=== PATIENT | female | born 1990 | race Caucasian/White ===

== ENCOUNTER 2016-11-03 09:18 | Emergency (ER) | payer OTHER ==
[~2016-11-03] VITALS: Ht 152.4 cm; Wt 59.0 kg
[2016-11-03 09:25] VITALS: BP 134/97; PULSE 88; RESP 16; TEMP 98; O2SAT 99
[2016-11-03] MEDS ORDERED: ASPI81CH CHEW (09:42)
[2016-11-03] MEDS ORDERED: VITACAP7 PO (09:42)
[2016-11-03] MEDS ORDERED: SODIUM CHLORIDE 0.9% FLUSH 5 ML FLUSH IVF PRN (09:45)
--- NOTE | 2016-11-03 09:48 | PD ---
HPI Chief Complaint: Chest Pain Time Seen by Provider: 09:31 Travel History International Travel<30 days: No Contact w/Intl Traveler<30days: No Traveled to known affect area: No History of Present Illness HPI The patient was seen and examined in the presence of the nurse. This patient complains of chest pain. Duration 3 days. It is intermittent. Location is center sternum. She describes it as a heaviness. It resolves spontaneously with no alleviating factors. It is not exertional. No cough or hemoptysis. 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 She has never had a blood clot. She takes only a baby aspirin daily. Severity is mild at this time. Was moderate when the chest pain was occurring. PFSH Past Medical History Hx Anticoagulant Therapy: Yes (BABY ASPIRIN ) Medical other: Yes (BLOOD DISORDER) ?: Not LMP: 10/20/16 Social History Alcohol Use: Yes (SOCIALLY) Tobacco Use: No Substance Use: No Allergies-Medications (Allergen,Severity, Reaction): Coded Allergies: Ceclor (Verified Allergy, Unknown, 11/03/16) Reported Meds & Prescriptions Reported Meds & Active Scripts Active Reported B Complex (B-Complex Vitamins) 1 Cap 1 Cap PO DAILY Aspirin 81 Mg Chew 81 Mg CHEW DAILY Review of Systems General / Constitutional: No: Fever Eyes: No: Visual changes HENT: No: Headaches Cardiovascular: Positive: Chest Pain or Discomfort Respiratory: Positive: Shortness of Breath Gastrointestinal: No: Abdominal Pain Genitourinary: No: Dysuria Musculoskeletal: No: Pain Skin: No Rash Neurologic: No: Weakness Psychiatric: No: Depression Endocrine: No: Polydipsia Hematologic/Lymphatic: No: Easy Bruising Physical Exam Narrative GENERAL: Well-nourished, well-developed patient in no apparent distress. SKIN: Warm and dry. HEAD: Atraumatic. Normocephalic. EYES: Pupils equal and round. No scleral icterus. No injection or drainage. ENT: No nasal bleeding or discharge. Mucous membranes pink and moist. NECK: Trachea midline. No JVD. CARDIOVASCULAR: Regular rate and rhythm. No murmur appreciated. RESPIRATORY: No accessory muscle use. Clear to auscultation. Breath sounds equal bilaterally. GASTROINTESTINAL: Abdomen soft, non-tender, nondistended. Hepatic and splenic margins not palpable. MUSCULOSKELETAL: No obvious deformities. No clubbing. No cyanosis. No edema. NEUROLOGICAL: Awake and alert. No obvious cranial nerve deficits. Motor grossly within normal limits. Normal speech. PSYCHIATRIC: Appropriate mood and affect; insight and judgment normal. Data Data Last Documented VS Vital Signs Date Time Temp Pulse Resp B/P Pulse Ox O2 Delivery O2 Flow Rate FiO2 11/03/16 11:25 79 20 107/75 98 11/03/16 09:25 98.0 Orders Basic Metabolic Panel (Bmp) (11/03/16 09:43) Ckmb (Isoenzyme) Profile (11/03/16 09:43) Complete Blood Count With Diff (11/03/16 09:43) D-Dimer (11/03/16 09:43) Prothrombin Time / Inr (Pt) (11/03/16 09:43) Act Partial Throm Time (Ptt) (11/03/16 09:43) Troponin I (11/03/16 09:43) Chest, Single Ap (11/03/16 09:43) Ecg Monitoring (11/03/16 09:43) Iv Access Insert/Monitor (11/03/16 09:43) Sodium Chloride 0.9% Flush (Ns Flush) (11/03/16 09:45) Electrocardiogram (11/03/16 ) Labs Laboratory Tests Test 11/03/16 09:45 White Blood Count 6.6 TH/MM3 Red Blood Count 4.81 MIL/MM3 Hemoglobin 13.4 GM/DL Hematocrit 41.1 % Mean Corpuscular Volume 85.4 FL Mean Corpuscular Hemoglobin 27.9 PG Mean Corpuscular Hemoglobin 32.7 % Concent Red Cell Distribution Width 13.2 % Platelet Count 343 TH/MM3 Mean Platelet Volume 7.8 FL Neutrophils (%) (Auto) 60.6 % Lymphocytes (%) (Auto) 23.8 % Monocytes (%) (Auto) 8.0 % Eosinophils (%) (Auto) 6.8 % Basophils (%) (Auto) 0.8 % Neutrophils # (Auto) 3.9 TH/MM3 Lymphocytes # (Auto) 1.6 TH/MM3 Monocytes # (Auto) 0.5 TH/MM3 Eosinophils # (Auto) 0.5 TH/MM3 Basophils # (Auto) 0.1 TH/MM3 CBC Comment DIFF FINAL Differential Comment Prothrombin Time 11.2 SEC Prothromb Time International 1.0 RATIO Ratio Activated Partial 25.7 SEC Thromboplast Time D-Dimer Quantitative (PE/DVT) LESS THAN 0.19 MG/L FEU Sodium Level 142 MEQ/L Potassium Level 3.8 MEQ/L Chloride Level 106 MEQ/L Carbon Dioxide Level 25.3 MEQ/L Anion Gap 11 MEQ/L Blood Urea Nitrogen 12 MG/DL Creatinine 0.67 MG/DL Estimat Glomerular Filtration 106 ML/MIN Rate Random Glucose 96 MG/DL Calcium Level 8.5 MG/DL Total Creatine Kinase 42 U/L Troponin I LESS THAN 0.02 NG/ML MDM Medical Decision Making Medical Screen Exam Complete: Yes Emergency Medical Condition: Yes Medical Record Reviewed: Yes Differential Diagnosis Differential diagnosis includes FL, angina, pericarditis, pleurisy, GERD, PE Narrative Course I have reviewed the patient's electronic medical record. Patient has never been to the ER before. IV placed I reviewed the EKG shows sinus rhythm but no ST elevation or ectopy I reviewed the chest x-ray which is normal Extended cardiac monitoring shows sinus rhythm without ectopy CBC is normal Metabolic profile is normal CK is normal Troponin is normal Coagulation studies are normal D-dimer is 0.19 Workup is negative and encouraging. On recheck she seems to be doing well with no chest pain or symptoms. Stable for outpatient follow-up. She does not have PE Diagnosis Primary Impression: Chest pain in adult Additional Instructions: The patient was advised to follow up with their physician and return if they worsen. Med/Other Pt SpecificInfo: Other Disposition: 01 DISCHARGE HOME Condition: Stable Rubén Craig MD Nov 03, 2016 09:48
[2016-11-03 10:02] LABS: AUTOMATED NEUTROPHIL # 3.9 TH/MM3 (1.8-7.7); BASOPHIL # 0.1 TH/MM3 (0-0.2); BASOPHIL % 0.8 % (0.0-2.0); EOSINOPHIL # 0.5 TH/MM3 (0-0.4); EOSINOPHIL % 6.8 % (0.0-4.0); HEMATOCRIT 41.1 % (35.0-46.0); HEMO FLAGS DIFF FINAL; LYMPH % 23.8 % (9.0-44.0); LYMPHOCYTE # 1.6 TH/MM3 (1.0-4.8); MEAN CELL VOLUME 85.4 FL (80.0-100.0); MEAN CORPUSCULAR HEMOGLOBIN 27.9 PG (27.0-34.0); MEAN CORPUSCULAR HGB CONC 32.7 % (32.0-36.0); NEUT % 60.6 % (16.0-70.0); PLATELET COUNT 343 TH/MM3 (150-450); RED BLOOD COUNT 4.81 MIL/MM3 (4.00-5.30); RED CELL DISTRIBUTION WIDTH 13.2 % (11.6-17.2); WHITE BLOOD COUNT 6.6 TH/MM3 (4.0-11.0)
[2016-11-03 10:13] LABS: CHLORIDE 106 MEQ/L (98-107); POTASSIUM 3.8 MEQ/L (3.5-5.1); SODIUM (NA) 142 MEQ/L (136-145)
[2016-11-03 10:17] LABS: ANION GAP 11 MEQ/L (5-15); BICARBONATE 25.3 MEQ/L (21.0-32.0); BLOOD UREA NITROGEN 12 MG/DL (7-18)
[2016-11-03 10:20] LABS: GLOMERULAR FILTRATION RATE 106 ML/MIN (>89)
[2016-11-03 10:26] LABS: CREATINE KINASE 42 U/L (26-192)
[2016-11-03 10:33] LABS: APTT (PATIENT) 25.7 SEC (24.3-30.1); PROTHROMBIN TIME - PATIENT 11.2 SEC (9.8-11.6)
[2016-11-03 10:37] VITALS: BP 93/71; PULSE 84; RESP 18; O2SAT 98
--- NOTE | 2016-11-03 10:38 | RADHPO ---
EXAM DATE/TIME: 11/03/2016 09:59 [facility] COMPARISON: No previous studies available for comparison. INDICATIONS : Chest pain and shortness of breath. MEDICAL HISTORY : None. SURGICAL HISTORY : None. ENCOUNTER: Initial ACUITY: 2 days PAIN SCORE: 6/10 LOCATION: Bilateral upper chest FINDINGS: A single view of the chest demonstrates the lungs to be symmetrically aerated without evidence of mas s, infiltrate or effusion. The cardiomediastinal contours are unremarkable. Osseous structures are intact. CONCLUSION: No acute cardiopulmonary process. Oswaldo Bueno MD on November 03, 2016 at 10:37 Board Certified Radiologist. This report was verified electronically.
[2016-11-03 11:25] VITALS: BP 107/75; PULSE 79; RESP 20; O2SAT 98
--- NOTE | 2016-11-04 10:38 | EKG ---
Date Performed: 11/03/2016 Time Performed: 09:34:10 PTAGE: 26 years EKG: Sinus tachycardia Normal ECG except for rate NO PREVIOUS TRACING DOCTOR: Bud Olguin Interpretating Date/Time 11/04/2016 10:37:59
== END 2016-11-03 12:02 | disposition home or self-care (01) ==
LOC: PHED 09:18
DX: R07.9 Chest pain, unspecified (principal)
CPT/HCPCS: 71010; 80048; 82550; 84484; 85025; 85379; 85610; 85730; 93005